=== PATIENT | male | born 1965 | race Caucasian/White ===

== ENCOUNTER 2024-05-18 12:23 | Inpatient (IN) ==
[2024-05-18] MEDS ORDERED: IOPAMIDOL 100 ML BOTTLE IV ONE (12:24)
[2024-05-18] MEDS: ASPIRIN 81 MG TAB.CHEW CHEWED ONE (12:57)
[2024-05-18] MEDS: POTASSIUM CHLORIDE 20 MEQ TABLET PO ONE (12:57)
[2024-05-18] MEDS: FUROSEMIDE 20 MG/2 ML VIAL IV ONE (12:57)
[2024-05-18 13:34] LABS: Basophils # (Auto) 0.01 K/mcL (0.00-0.30); Basophils % (Auto) 0.2 % (0.0-2.0); Eosinophils # (Auto) 0 K/mcL (0.00-0.70); Eosinophils % (Auto) 0 % (0.0-7.0); Hematocrit 49.7 % (40.1-51.0); Hemoglobin 15.8 g/dL (13.7-17.5); INR 1.1 (0.9-1.1); Lymphocytes # (Auto) 0.71 K/mcL (1.50-4.80); Lymphocytes % (Auto) 12.2 % (15.5-49.0); Mean Cell Volume 84.2 fL (80.0-100.0); Mean Corpuscular HGB Conc 31.8 g/dL (31.0-36.0); Mean Platelet Volume 10.5 fL (8.8-12.5); Monocytes % (Auto) 10.3 % (1.0-12.0); Neutrophils % (Auto) 77.1 % (38.0-78.0); Platelet Count 257 K/mcL (140-440); Prothrombin Time 14.4 sec (11.9-14.5); WBC 5.8 K/mcL (4.5-11.0)
[2024-05-18 13:44] LABS: ALT/SGPT 20 U/L (<40); AST/SGOT 31 U/L (<40); Albumin 3.5 gm/dL (3.2-5.2); Albumin/Globulin Ratio 1.2 (1.0-2.3); Alkaline Phosphatase 183 U/L (39-117); Blood Urea Nitrogen 22 mg/dL (8-23); Calcium 8.7 mg/dL (8.6-10.4); Carbon Dioxide 24 mmol/L (22-30); Chloride 95 mmol/L (96-108); Glomerular Filtration Rate 65; Glucose 207 mg/dL (70-105); Potassium 4.5 mmol/L (3.3-5.1); Sodium 133 mmol/L (133-145)
[2024-05-18 15:33] LABS: Appearance,Urine CLEAR (Clear); Bilirubin,Urine Negative (Negative); Color,Urine YELLOW; Culture Indicated,Urine No; Glucose,Urine (UA) Negative (Negative); Ketones,Urine Negative (Negative); Leukocyte Esterase,Urine Negative /uL (Negative); Mucus,Urine FEW /hpf; Nitrate,Urine Negative (Negative); Protein,Urine 100 mg/dL (Negative); Specific Gravity,Urine 1.009 (1.000-1.035); Urine RBC 7 /hpf (0-3); Urine Squamous Epithelial Cell 0 /hpf (0-4); Urine WBC 1 /hpf (0-4); Urobilinogen,Urine Negative
[2024-05-18 15:50] LABS: Amphetamine Screen,Urine Suspect positive; Barbiturate Screen,Urine None detected; Benzodiazepines Screen,Urine None detected; Cannabinoid Screen,Urine None detected; Cocaine Screen,Urine None detected; Opiate Screen,Urine None detected; Oxycodone, Urine Screen None detected; Phencyclidine Screen,Urine None detected
[2024-05-18] MEDS ORDERED: DEXTROSE 50% 50 ML VIAL IV PRN (19:40)
[2024-05-18] MEDS ORDERED: SENNOSIDES 1 TABLET PO PRN (19:40)
[2024-05-18] MEDS ORDERED: POLYETHYLENE GLYCOL 3350 17 GM PACKET PO PRN (19:40)
[2024-05-18] MEDS ORDERED: POTASSIUM CHLORIDE 40 MEQ in DEXTROSE 5% IN WATER 500 ML IV PRN (19:40)
[2024-05-18] MEDS ORDERED: ACETAMINOPHEN 160 MG/5 ML ORAL.SOL PO PRN (19:40)
[2024-05-18] MEDS ORDERED: DEXTROSE 31 GM ORAL.SUSP PO PRN (19:40)
[2024-05-18] MEDS ORDERED: MAGNESIUM SULFATE 2 GM/50 ML BAG IV PRN (19:40)
[2024-05-18] MEDS ORDERED: POTASSIUM CHLORIDE 20 MEQ TABLET PO PRN (19:40)
[2024-05-18] MEDS: FUROSEMIDE 40 MG/4 ML VIAL IV SCH (19:49)
[2024-05-18] MEDS: IPRATROPIUM/ALBUTEROL 3 ML AMPUL.NEB NEB PRN (19:50)
[2024-05-18] MEDS: IPRATROPIUM/ALBUTEROL 3 ML AMPUL.NEB NEB ONE (19:57)
[2024-05-18] MEDS: FUROSEMIDE 40 MG/4 ML VIAL IV ONE (19:57)
[2024-05-18] MEDS: NITROGLYCERIN 1 GM OINT.TOP TOPICAL SCH (20:01)
[2024-05-18] MEDS: DOCUSATE SODIUM 100 MG CAPSULE PO SCH (20:50)
[2024-05-18] MEDS: METOPROLOL TARTRATE 5 MG/5 ML VIAL IV PRN (20:56)
[2024-05-18] MEDS: INSULIN LISPRO 1 UNIT/0.01 ML UNIT SQ SCH (20:56)
[2024-05-18 21:07] LABS: INR 1.2 (0.9-1.1); Partial Thromboplastin Time 29.4 sec (20.0-37.0); Prothrombin Time 15.6 sec (11.9-14.5)
[2024-05-18 21:39] LABS: Estimated Average Glucose(eAG) 324 mg/dL; Hemoglobin A1C 12.9 % Hgb (4.0-6.0)
[2024-05-19 07:42] LABS: ALT/SGPT 17 U/L (<40); AST/SGOT 30 U/L (<40); Albumin 2.9 gm/dL (3.2-5.2); Albumin/Globulin Ratio 1.1 (1.0-2.3); Alkaline Phosphatase 144 U/L (39-117); Bilirubin,Direct 0.3 mg/dL (<0.3); Bilirubin,Total 0.9 mg/dL (0.1-1.0); Blood Urea Nitrogen 21 mg/dL (8-23); Carbon Dioxide 26 mmol/L (22-30); Chloride 94 mmol/L (96-108); Globulin 2.6 gm/dL (2.2-3.7); Glomerular Filtration Rate 72; Glucose 163 mg/dL (70-105); Lactate Dehydrogenase 245 U/L (135-225); Potassium 4.4 mmol/L (3.3-5.1); Sodium 131 mmol/L (133-145); Triglycerides 55 mg/dL (<150); Uric Acid 4.6 mg/dL (2.5-8.0)
[2024-05-19] MEDS ORDERED: ENALAPRILAT 1.25 MG/ML VIAL IV PRN (07:42)
[2024-05-19] MEDS ORDERED: diphenhydrAMINE 25 MG CAPSULE PO PRN (09:50)
[2024-05-19] MEDS: RIVAROXABAN 20 MG TABLET PO SCH ×2 (09:57→20:57)
[2024-05-19] MEDS: LORazepam 2 MG/ML VIAL IV PRN (10:05)
[2024-05-19] MEDS: SPIRONOLACTONE 25 MG TABLET PO SCH (10:06)
[2024-05-19] MEDS: ATORVASTATIN 20 MG TABLET PO SCH (10:06)
[2024-05-19] MEDS: ASPIRIN 81 MG TAB.CHEW CHEWED SCH (12:07)
[2024-05-19] MEDS: LABETALOL HCL 20 MG/4 ML VIAL IV PRN (12:07)
[2024-05-19] MEDS: 0.9 % SODIUM CHLORIDE 10 ML SYRINGE IV SCH (12:10)
[2024-05-19] MEDS ORDERED: RIVAROXABAN 20 MG TABLET PO SCH (17:00)
[2024-05-19 18:51] LABS: LDH,Pleural Fluid 109 U/L (<122)
[2024-05-19 19:04] LABS: Appearance,Pleural Fluid Clear; Color,Pleural Fluid Yellow; Lymphocytes,Pleural Fluid 21 %; Mesothelial,Pleural Fluid 5 %; Monocytes,Pleural Fluid 74 %; Neutrophils,Pleural Fluid 0 %; Nucleated Cells,Pleural Fld 594 /cumm; RBC,Pleural Fluid <50,000 /cumm
[2024-05-19] MEDS: MELATONIN 3 MG TABLET PO SCH (19:36)
[2024-05-19] MEDS ORDERED: LOPERAMIDE 2 MG CAPSULE PO PRN (21:36)
[2024-05-20] MEDS: ACETAMINOPHEN 325 MG TABLET PO PRN (00:16)
[2024-05-20] MEDS: ACETAMINOPHEN 325 MG TABLET PO ONE (01:00)
[2024-05-20 07:09] LABS: ALT/SGPT 24 U/L (<40); AST/SGOT 24 U/L (<40); Albumin 2.8 gm/dL (3.2-5.2); Alkaline Phosphatase 61 U/L (39-117); Bilirubin,Direct 0.4 mg/dL (<0.3); Bilirubin,Total 0.7 mg/dL (0.1-1.0); Blood Urea Nitrogen 47 mg/dL (8-23); Calcium 8.1 mg/dL (8.6-10.4); Carbon Dioxide 20 mmol/L (22-30); Chloride 92 mmol/L (96-108); Globulin 2.7 gm/dL (2.2-3.7); Glomerular Filtration Rate 54; Glucose 191 mg/dL (70-105); Lactate Dehydrogenase 165 U/L (135-225); Phosphorous 2.3 mg/dL (2.5-4.5); Potassium 3.4 mmol/L (3.3-5.1); Sodium 126 mmol/L (133-145); Triglycerides 151 mg/dL (<150); Uric Acid 9.2 mg/dL (2.5-8.0)
[2024-05-20 08:34] LABS: Hemoglobin 13.1 g/dL (13.7-17.5); Lymphocytes % 5 % (15-49); Mean Cell Volume 84.7 fL (80.0-100.0); Mean Platelet Volume 10.8 fL (8.8-12.5); Monocytes % (Manual) 1 % (1-12); Platelet Count 178 K/mcL (140-440); Platelet Estimate NORMAL (Normal); RBC 4.84 M/mcL (4.63-6.08); RBC Morphology NORMAL (Normal); Red Cell Distribution Width 13.9 % (11.5-14.5); Segmented Neutrophils % 94 % (38-78); WBC 7.2 K/mcL (4.5-11.0)
[2024-05-20] MEDS: ALBUMIN HUMAN 12.5 GM/50 ML VIAL IV ONE (08:34)
[2024-05-20] MEDS: POTASSIUM CHLORIDE 20 MEQ TABLET PO PRN (08:35)
[2024-05-20] MEDS: MAG HYDROX/AL HYDROX/SIMETH 30 ML ORAL.SUSP PO PRN (12:47)
[2024-05-21 06:55] LABS: ALT/SGPT 18 U/L (<40); AST/SGOT 47 U/L (<40); Albumin 2.7 gm/dL (3.2-5.2); Albumin/Globulin Ratio 1.1 (1.0-2.3); Alkaline Phosphatase 123 U/L (39-117); Bilirubin,Direct 0.2 mg/dL (<0.3); Bilirubin,Total 0.6 mg/dL (0.1-1.0); Blood Urea Nitrogen 32 mg/dL (8-23); C-Reactive Protein 7.76 mg/dL (0.03-0.80); Calcium 7.9 mg/dL (8.6-10.4); Carbon Dioxide 30 mmol/L (22-30); Chloride 94 mmol/L (96-108); Globulin 2.4 gm/dL (2.2-3.7); Glomerular Filtration Rate 72; Glucose 95 mg/dL (70-105); Lactate Dehydrogenase 254 U/L (135-225); Phosphorous 2.4 mg/dL (2.5-4.5); Sodium 132 mmol/L (133-145); Triglycerides 54 mg/dL (<150)
[2024-05-21] MEDS ORDERED: NICOTINE POLACRILEX 2 MG GUM CHEW/PARK PRN ×2 (10:00→10:06)
[2024-05-21] MEDS: NICOTINE 21 MG PATCH TOPICAL ONE (10:14)
[2024-05-21] MEDS: TORSEMIDE 10 MG TABLET PO SCH (11:12)
[2024-05-22 11:10] LABS: Amphetamine Screen Positive
== END 2024-05-21 14:30 | disposition home or self-care (01) | DRG 292 ==
LOC: ED 12:23 → ICU 19:28
PROVIDERS: ADMIT Internal Medicine; ATTEND Internal Medicine